=== PATIENT | female | born 1940 ===

== ENCOUNTER 2017-12-19 13:51 | Outpatient (CLI) | payer OTHER | END 2017-12-19 14:00 | disposition home or self-care (01) | LOC: RAD 13:51 | DX: E04.8 Other specified nontoxic goiter (principal); F03.90 Unspecified dementia, unspecified severity, without behavioral disturbance, psychotic disturbance, mood disturbance, and anxiety | CPT/HCPCS: 70551 ==

== ENCOUNTER 2019-03-21 13:47 | Outpatient (CLI) | payer OTHER | END 2019-03-21 14:07 | disposition home or self-care (01) | LOC: MRI 13:47 | DX: M25.561 Pain in right knee (principal); M25.562 Pain in left knee | CPT/HCPCS: 73718 ==

== ENCOUNTER 2019-12-31 10:20 | Outpatient (CLI) | payer OTHER | END 2019-12-31 10:28 | disposition home or self-care (01) | LOC: NUCLEAR 10:20 | PROVIDERS: ATTEND Internal Medicine Cardiovascular Disease | DX: I11.9 Hypertensive heart disease without heart failure (principal); I25.10 Atherosclerotic heart disease of native coronary artery without angina pectoris; R94.31 Abnormal electrocardiogram [ECG] [EKG] ==